=== PATIENT | male | born 1990 | race Caucasian/White ===

== ENCOUNTER 2023-01-21 16:37 | Emergency (ER) | payer OTHER ==
[~2023-01-21] VITALS: Ht 180.3 cm; Wt 84.4 kg
[2023-01-21 16:49] VITALS: BP 116/80
--- NOTE | 2023-01-21 16:54 | NUR ---
pt in wheel chair to bed 11
[2023-01-21] MEDS ORDERED: MORPHINE SULFATE 5 MG/ML VIAL IM ONE (17:25)
[2023-01-21] MEDS ORDERED: KETOROLAC 30 MG/ML VIAL IM ONE (17:25)
[2023-01-21] MEDS ORDERED: MORPHINE SULFATE 4 MG/ML SYR ONE (17:31)
[2023-01-21] MEDS ORDERED: MORPHINE SULFATE 2 MG/ML SYR ONE (17:32)
[2023-01-21] MEDS ORDERED: NAPR-1847 PO (18:17)
[2023-01-21] MEDS ORDERED: LID5T TP (18:17)
[2023-01-21] MEDS ORDERED: ACET-8905 PO (18:17)
[2023-01-21 18:46] LABS: APPEARANCE,URINE CLEAR (CLEAR); BILIRUBIN,URINE NEGATIVE (NEGATIVE); BLOOD, URINE TRACE-I (NEGATIVE); COLOR,URINE YELLOW (YELLOW); LEUKOCYTE ESTERASE ,URINE NEGATIVE (NEGATIVE); NITRITE, URINE NEGATIVE (NEGATIVE); PH,URINE 6.5 (5.0-9.0); UGLUCOSE NEGATIVE (NEGATIVE)
[2023-01-21 18:59] LABS: RBC,URINE 0-5 /HPF (0-5)
[2023-01-21 19:05] VITALS: BP 127/65
--- NOTE | 2023-01-21 19:05 | NUR ---
Patient discharged with v/s stable. Written and verbal after care instructions given and explained. Patient alert, oriented and verbalized understanding of instructions. DC'D VIA WHEELCHAIR. All questions addressed prior to discharge. ID band removed. Patient advised to follow up with PMD. Rx of NORCO, LIDOCAINE PATCH, AND NAPROXEN given. Patient educated on indication of medication including possible reaction and side effects. Opportunity to ask questions provided and answered.
== END 2023-01-21 19:05 | disposition home or self-care (01) ==
LOC: MED 16:37
DX: S39.012A Strain of muscle, fascia and tendon of lower back, initial encounter (principal); Z79.899 Other long term (current) drug therapy; Z98.890 Other specified postprocedural states; X58.XXXA Exposure to other specified factors, initial encounter; Y93.89 Activity, other specified; Y92.89 Other specified places as the place of occurrence of the external cause; Y99.8 Other external cause status
CPT/HCPCS: 72100; 81001; 96372; 99284; J1885; J2270; Q0092

== ENCOUNTER 2023-11-26 13:09 | Emergency (ER) | payer OTHER ==
[~2023-11-26] VITALS: Ht 180.3 cm; Wt 90.3 kg
[~2023-11-26 13:09] MED LIST: ACET-8905 PO; LID5T TP; NAPR-1847 PO
[2023-11-26 13:26] VITALS: BP 141/87; PULSE 90; RESP 18; TEMP 98; O2SAT 99
[2023-11-26] MEDS: diphenhydrAMINE 50 MG/ML VIAL IVP ONE (14:16)
[2023-11-26] MEDS: NACL 0.9% 1,000 ML IV ONE (14:16)
[2023-11-26] MEDS: METOCLOPRAMIDE 10 MG/2 ML INJ VIAL IVP ONE (14:17)
[2023-11-26] MEDS: KETOROLAC 30 MG/ML VIAL IVP ONE (14:17)
[2023-11-26 14:18] LABS: BASOPHILS # (AUTO) 0.1 K/uL (0.00-0.22); BASOPHILS % (AUTO) 0.8 % (0.0-2.0); EOSINOPHILS # (AUTO) 0.2 K/uL (0-0.4); HEMATOCRIT 45.4 % (36-52); LYMPHOCYTES # (AUTO) 1.4 K/uL (2.0-11.5); LYMPHOCYTES % (AUTO) 17.2 % (20.5-51.1); MEAN CORPUSCULAR HEMOGLOBIN 30 pg (27-31); MEAN CORPUSCULAR HGB CONC 35 g/dL (33-37); MEAN CORPUSCULAR VOLUME 85.3 fL (80-94); MONOCYTES # (AUTO) 0.9 K/uL (0.8-1.0); MONOCYTES % (AUTO) 11.9 % (1.7-9.3); NEUTROPHILS # (AUTO) 5.4 K/uL (1.8-7.7); NEUTROPHILS % (AUTO) 68.1 % (42.2-75.2); PLATELET COUNT (AUTO) 245 K/uL (140-450); RED BLOOD CELL COUNT(AUTO) 5.32 MIL/uL (4.20-6.10); RED CELL DISTRIBUTION WIDTH 14.2 % (11.6-13.7); WHITE BLOOD COUNT (AUTO) 7.9 K/uL (4.8-10.8)
[2023-11-26 14:34] LABS: ANION GAP 14.7 (8-16); CALCIUM 9.9 mg/dL (8.5-10.1); CARBON DIOXIDE 27.2 mmol/L (21-32); POTASSIUM 3.9 mmol/L (3.5-5.1)
[2023-11-26 16:19] VITALS: BP 126/85; PULSE 79; RESP 20; O2SAT 99
== END 2023-11-26 16:18 | disposition home or self-care (01) ==
LOC: MED 13:09
DX: R51.9 Headache, unspecified (principal); Z79.899 Other long term (current) drug therapy
CPT/HCPCS: 36415; 70450; 80048; 85025; 96361; 96374; 96375; 99285; J1200; J1885; J2765; J7030